=== PATIENT | female | born 1960 | race Caucasian/White ===

== ENCOUNTER → 2017-01-14 | Outpatient (CLI) | payer OTHER | LOC: FIMAGING 09:10 | PROVIDERS: ATTEND Obstetrics & Gynecology | DX: Z12.31 Encounter for screening mammogram for malignant neoplasm of breast (principal); Z80.3 Family history of malignant neoplasm of breast | CPT/HCPCS: G0202 ==

== ENCOUNTER → 2018-02-11 | Outpatient (CLI) | payer OTHER | LOC: FIMAGING 12:41 | PROVIDERS: ATTEND Obstetrics & Gynecology | DX: Z12.31 Encounter for screening mammogram for malignant neoplasm of breast (principal); Z80.3 Family history of malignant neoplasm of breast ==

== ENCOUNTER → 2019-02-16 | Outpatient (CLI) | payer OTHER | LOC: FIMAGING 09:29 | PROVIDERS: ATTEND Obstetrics & Gynecology | DX: Z12.31 Encounter for screening mammogram for malignant neoplasm of breast (principal); Z80.3 Family history of malignant neoplasm of breast ==